=== PATIENT | male | born 1980 | race Caucasian/White ===

== ENCOUNTER 2017-11-23 16:25 | Emergency (ER) | payer OTHER ==
[~2017-11-23 16:25] MED LIST: PROM-110 PO
--- NOTE | 2017-11-23 16:27 | ER Report ---
History and Physical Time Seen By MD: 16:26 HPI/ROS 37-year-old right handed male hit his left thumb with a hammer prior to arrival. Now with pain and bleeding in his distal left thumb. Remainder of the 14 system rev: Yes Allergies: Coded Allergies: No Known Drug Allergies (Unverified , 10/30/16) Home Meds Reported Medications Testosterone Cypionate (TESTOSTERONE CYPIONATE) 200 Mg/1 Ml Vial 11/23/17 Discontinued Scripts Promethazine Hcl (PROMETHAZINE HCL) 25 Mg Tablet, 25 MG PO Q6H for Nausea, #20 TAB 0 Refills Prov:MILI SAGASTUME MD 10/30/16 Reviewed Nurses Notes: Yes Old Medical Records Reviewed: Yes Hx Smoking: No Hx Alcohol Use: No Constitutional Vital Sign - Last 24 Hours 11/23/17 11/23/17 11/23/17 11/23/17 16:25 16:27 16:28 16:30 Temp 97.9 Pulse ??? 54 Resp 20 B/P (MAP) 118/71 (87) 118/71 118/72 (87) Pulse Ox 94 O2 Delivery Room Air 11/23/17 11/23/17 11/23/17 11/23/17 16:55 17:00 17:25 17:30 Pulse 52 58 B/P (MAP) 114/78 (90) 119/72 (88) Pulse Ox 94 95 11/23/17 11/23/17 11/23/17 17:55 18:00 18:40 Pulse 54 58 B/P (MAP) 119/69 (86) 117/71 (86) Pulse Ox 95 96 Physical Exam General appearance: Alert no distress. Respiratory: Chest is non tender, lungs are clear to auscultation. Cardiac: Regular rate and rhythm Left hand: n/v in tact, full ROM, subungual hematoma with injury to soft tissue. DIFFERENTIAL DIAGNOSIS: After history and physical exam differential diagnosis was considered for fracture, n/v injury, Medical Decision Making ED Course/Re-evaluation ED Course Uncomplicated injury from a hammer to the patient's left thumb. No fracture. There is some non-closable soft tissue injury. There is a subungual hematoma which was evacuated with a cautery pen. He was given a tetanus shot. Does not need antibiotics. The wound was cleaned, dressed, and a splint placed. Decision to Disposition Date: Nov 23, 2017 Decision to Disposition Time: 18:34 Depart Departure Latest Vital Signs Vital Signs Date Time Temp Pulse Resp B/P (MAP) Pulse Ox O2 Delivery O2 Flow Rate FiO2 11/23/17 18:40 58 117/71 (86) 96 11/23/17 16:28 97.9 20 Room Air Impression: Primary Impression: Thumb injury Condition: Improved Disposition: HOME OR SELF-CARE Patient Instructions: Subungual Hematoma (ED) Problem Qualifiers Primary Impression: Thumb injury Encounter type: initial encounter Laterality: left Qualified Codes: S69.92XA - Unspecified injury of left wrist, hand and finger(s), initial encounter JEFFERY COLON MD Nov 23, 2017 16:27
[2017-11-23] MEDS ORDERED: TEST200V (16:32)
--- NOTE | 2017-11-23 17:10 | RADIOLOGY IMAGING REPORT ---
FACILITY: [facility] [place] PATIENT NAME: Leon Avila : 1980 MR: [id number] V: [id number] EXAM DATE: ORDERING PHYSICIAN: JEFFERY COLON TECHNOLOGIST: Location: [facility] Patient: Leon Avila : 1980 Visit/Account:[id number] Date of Sevice: 11/23/2017 INDICATION: TRAUMA. DATE: 11/23/2017 5:07 PM. TECHNIQUE: FINGER LEFT THUMB COMPARISON: None FINDINGS: There is a soft tissue injury at the tuft of the thumb but no acute osseous abnormality. IMPRESSION: Soft tissue injury at the thumb but no acute osseous abnormality. Report Dictated By: Tamra Peng MD at 11/23/2017 5:07 PM Report E-Signed By: Tamra Peng MD at 11/23/2017 5:07 PM WSN:[id number]
[2017-11-23 18:40] VITALS: BP 117/71
== END 2017-11-23 18:41 | disposition home or self-care (01) ==
LOC: ER 16:39
DX: S60.012A Contusion of left thumb without damage to nail, initial encounter (principal); W20.8XXA Other cause of strike by thrown, projected or falling object, initial encounter
CPT/HCPCS: 99283